=== PATIENT | male | born 1990 | race African-American/Black ===

== ENCOUNTER 2016-08-13 20:22 | Emergency (ER) | payer BC ==
[~2016-08-13] VITALS: Ht 175.3 cm; Wt 100.0 kg
[2016-08-13 20:33] VITALS: Ht 175.3 cm; Wt 100.0 kg
[2016-08-13] MEDS ORDERED: AMO500 PO (22:42)
[2016-08-13] MEDS ORDERED: HYDR-906 PO (22:42)
[2016-08-13 22:53] VITALS: BP 146/82; PULSE 84; RESP 17; TEMP 97.3
[2016-08-13] MEDS ORDERED: HYDROCODONE/APAP (5/325) TAB PO ONE (23:00)
--- NOTE | 2016-08-13 23:47 | ERD ---
ER Documentation Chief Complaint Date/Time DATE: 08/13/16 TIME: 23:43 Chief Complaint dental pain x 1 day HPI This is a 25-year-old male presenting to the emergency department for dental pain 3 days. Patient has pain to left side of his mouth near his upper molars. Patient went to dentist 2 weeks ago and stated that patient needed multiple fillings. Patient describes the pain as throbbing and now constant. Patient took Motrin at home with last dose about 4 hours prior to arrival. Patient states Motrin is not adequate for pain control. Now rating pain 10/10. No facial swelling. No difficult swallowing. No drooling. No fevers or chills. Patient has next upcoming appointment in a few weeks ROS All systems reviewed and are negative except as per history of present illness. Medications Home Meds Active Scripts Hydrocodone/Acetaminophen (Temple 5-325 Tablet) 1 Each Tablet, 1 TAB PO Q6H Y for PAIN, #7 TAB Prov:AAYUSH FINLEY NP 08/13/16 Amoxicillin* (Amoxicillin*) 500 Mg Cap, 500 MG PO TID for 7 Days, CAP Prov:AAYUSH FINLEY NP 08/13/16 PMhx/Soc Medical and Surgical Hx: pt denies Surgical Hx Hx Miscellaneous Medical Probl: Yes (hiv positive) Hx Alcohol Use: No Hx Substance Use: No Hx Tobacco Use: No Smoking Status: Never smoker Physical Exam Vitals Vital Signs Date Time Temp Pulse Resp B/P Pulse Ox O2 Delivery O2 Flow Rate FiO2 08/13/16 22:53 97.3 84 17 146/82 100 Room Air 08/13/16 20:33 97.3 81 17 145/79 100 Physical Exam Const: No acute distress, alert Head: Atraumatic Eyes: Normal Conjunctiva ENT: Normal External Ears, Nose and Mouth. Multiple missing teeth. Neck: Full range of motion..~ No meningismus. Resp: Clear to auscultation bilaterally Cardio: Regular rate and rhythm, no murmurs Abd: Soft, non tender, non distended. Normal bowel sounds Skin: No petechiae or rashes Back: No midline or flank tenderness Ext: No cyanosis, or edema Neur: Awake and alert Psych: Normal Mood and Affect Results 24 hrs Current Medications Medications (Trade) Dose Ordered Sig/Charanjit Route PRN Reason Start Time Stop Time Status Last Admin Dose Admin Acetaminophen/ Hydrocodone Bitart (Temple (5/325)) 1 tab ONCE ONCE PO 08/13/16 23:00 08/13/16 23:01 DC 08/13/16 22:47 Procedures/MDM MDM: 25-year-old male presents emergency department for left-sided dental pain 3 days. Physical exam is overall unremarkable. No fevers or chills upon arrival to ED. Remains hemodynamically stable. Patient given Temple on the ED and pain reduced. Diagnosis is dental pain. Low suspicion for peritonsillar abscess, strep pharyngitis or epiglottitis. Patient is appropriate for outpatient management will be given prescription for amoxicillin and Temple. Instructed patient to follow-up with dentist or [facility]. Resources provided. Return to ED for any high fever, chest pain , difficulty breathing, shortness breath, wheezing, vomiting, diarrhea, abdominal pain or any new or worsening symptoms. Patient verbalizes understanding. All questions answered at discharge. Departure Diagnosis: Primary Impression: Pain, dental Condition: Stable Patient Instructions: Dental Pain Referrals: ADRIANA SHETTY (PCP) [facility] ([facility]) Additional Instructions: Return to ED for any high fever, chest pain, difficulty breathing, shortness breath, wheezing, vomiting, diarrhea, abdominal pain or any new or worsening symptoms. AAYUSH FINLEY NP Aug 13, 2016 23:47
== END 2016-08-13 22:55 | disposition home or self-care (01) ==
LOC: FTE 20:22
DX: K08.89 Other specified disorders of teeth and supporting structures (principal)
CPT/HCPCS: 99284